=== PATIENT | female | born 2000 | race Caucasian/White ===

== ENCOUNTER 2018-10-23 14:43 | Outpatient (CLI) | payer OTHER ==
--- NOTE | 2018-10-23 16:44 | ULT ---
LIMITED RIGHT BREAST ULTRASOUND: 10/23/2018 PROVIDED CLINICAL HISTORY: Right breast palpable abnormality. FINDINGS: Limited sonographic interrogation was performed to the right breast, in the region of palpable concer n, from the 2 to 4 o'clock positions. The sonographic appearance of the interrogated breast jorge lucia is normal. IMPRESSION: No sonographic abnormality is evident in the region of palpable concern. Negative imaging findings s hould not preclude further investigation of a clinically suspicious area. The patient is referred ba ck to her clinician. POS: OFF
== END 2018-10-23 14:44 | disposition home or self-care (01) ==
LOC: BICULT 14:43
PROVIDERS: ATTEND Student in an Organized Health Care Education/Training Program
DX: N63.12 Unspecified lump in the right breast, upper inner quadrant (principal)

== ENCOUNTER 2020-07-19 20:59 | Inpatient (IN) | payer OTHER ==
[2020-07-19 21:30] VITALS: BMI 31.6
[2020-07-19] MEDS ORDERED: Butorphanol Tartrate 1 MG/ML VIAL SLOW IVP PRN (21:38)
[2020-07-19] MEDS ORDERED: Misoprostol 200 MCG TAB PR PRN (21:38)
[2020-07-19] MEDS ORDERED: Lidocaine 1% (PF) 30 ML VIAL SC PRN (21:38)
[2020-07-19] MEDS ORDERED: Acetaminophen 500 MG TAB PO PRN (21:38)
[2020-07-19] MEDS ORDERED: HYDROcodone/Acetaminophen 5/325 mg Tablet PO PRN ×2 (21:38)
[2020-07-19] MEDS ORDERED: Promethazine HCl 25 MG/ML VIAL IM PRN (21:38)
[2020-07-19] MEDS ORDERED: Methylergonovine 0.2 MG/ML VIAL IM PRN (21:38)
[2020-07-19] MEDS ORDERED: hydrALAZINE 20 MG/ML VIAL SLOW IVP PRN (21:38)
[2020-07-19] MEDS ORDERED: Ondansetron PF 4 MG/2 ML Vial IVP PRN (21:38)
[2020-07-19] MEDS ORDERED: Diphenoxylate HCl/Atropine Tablet PO PRN ×2 (21:38)
[2020-07-19] MEDS ORDERED: Ibuprofen 800 MG TAB PO PRN (21:38)
[2020-07-19] MEDS ORDERED: Carboprost 250 MCG/ML AMP IM PRN (21:38)
--- NOTE | 2020-07-19 21:41 | PDOC.LDHP ---
Labor and Delivery H&P Chief complaint: contractions HPI: 19 y/o G1 at 38w6d, patient of Dr. Lamar, presents with ctx q 5 mins. Denies VB, LOF, or decreased FM. ROS neg for HEENT, cv, pulm, gi, gu, neuro, psych, skin, musculoskeletal or constitutional symptoms other than mentioned above. OB History Details: First Current complications: none Past Medical History: None Current medications: pre- vitamins Previous surgical history: none Allergies/Adverse Reactions: Allergies Allergy/AdvReac Type Severity Reaction Status Date / Time No Known Drug Allergies Allergy Verified 07/19/20 21:20 Social history: none - Physical Exam Vital signs reviewed and normal: yes General: NAD, resting Lungs: nonlabored breathing Abdomen: gravid Extremeties: no edema FHT: category 1 (140s, mod variability, + accels, no decels) [place] contractions every: 5 mins - Vaginal Exam cm dilated: 7 Effacement: 100% Station: -1 - OB Labs Blood type: O RH: positive Antibody Screen: negative HIV: negative RPR: negative HEPSAg: negative 1 hour GCT: negative GBS: negative Rubella: immune - Assessment L&D Assessment: term patient in labor - Plan Plan: admit to L&D, labor augmentation if indicated, informed consent obtained, anesthesia consult for pain management (if desired)
[2020-07-19] MEDS ORDERED: Lactated Ringer's 1,000 ML IV SCH (22:00)
[2020-07-19 22:44] LABS: Hemoglobin 13.1 g/dL (12.0-16.0); Mean Corpuscular HGB CONC 34.2 g/dL (32.0-36.0); Mean Corpuscular Hemoglobin 28.6 pg (27.0-31.0); Mean Corpuscular Volume 83.6 fL (78.0-98.0); Mean Platelet Volume 7.8 fL (7.4-10.4); Platelet Count 347 thou/uL (130-400); RBC Distribution Width 12.7 % (11.5-14.5); Red Blood Cell (RBC) Count 4.59 mill/uL (4.20-5.40); White Blood Cell (WBC) Count 14.1 thou/uL (4.8-10.8)
[2020-07-19] MEDS ORDERED: Fentanyl 4 mcg/Bup 0.1% Cadd 0 ML ONE (23:02)
[2020-07-19 23:24] LABS: Syphilis Antibody Nonreactive (Nonreactive); Syphilis Antibody Index 0.05 S/CO (<1.00 Non-Reactive)
[2020-07-20] MEDS: NS / Oxytocin 40 units/1000ml 1,000 ML IV PRN ×2 (00:21→01:48)
[2020-07-20] MEDS ORDERED: diphenhydrAMINE 25 MG CAP PO PRN (00:41)
[2020-07-20] MEDS ORDERED: Misoprostol 200 MCG TAB VAG PRN (00:41)
[2020-07-20] MEDS ORDERED: Preparation H Ointment 28 GM TUBE PR PRN (00:41)
[2020-07-20] MEDS ORDERED: Benzocaine-Menthol 82.5 ML CAN TOP PRN (00:41)
[2020-07-20] MEDS ORDERED: Promethazine HCl 25 MG/ML VIAL IM PRN (00:41)
[2020-07-20] MEDS ORDERED: hydrALAZINE 20 MG/ML VIAL SLOW IVP PRN (00:41)
[2020-07-20] MEDS ORDERED: Methylergonovine 0.2 MG/ML VIAL IM PRN (00:41)
[2020-07-20] MEDS ORDERED: Milk Of Magnesia 30 ML UDCUP PO PRN (00:41)
[2020-07-20] MEDS ORDERED: HYDROcodone/Acetaminophen 5/325 mg Tablet PO PRN ×2 (00:41)
[2020-07-20] MEDS ORDERED: Bisacodyl 10 MG SUPP PR PRN (00:41)
[2020-07-20] MEDS ORDERED: Ondansetron PF 4 MG/2 ML Vial IVP PRN (00:41)
--- NOTE | 2020-07-20 00:43 | PDOC.OPDEL ---
OB Operative/Delivery Note Delivery Dr/Surgeon: Vivek Pre-Delivery Diagnosis: active labor Procedure/Post Delivery Dx: spontaneous vaginal delivery Weeks gestation: 39 Anesthesia: none - Findings A Sex: male ("Aldo") Weight: 7 lb 3.734 oz - 1 min: 9 - 5 min: 9 - Additional Findings/Plan Placenta delivered: spontaneous Repaired Obstetrical Laceration: 2nd degree (and left vaginal) Post delivery plan: routine recovery
[2020-07-20] MEDS ORDERED: NS / Oxytocin 40 units/1000ml 1,000 ML IV SCH (00:45)
[2020-07-20 01:20] LABS: HBSAg Index 0.14 S/CO (0-0.99); Hep B Surf Ag Non-Reactive S/CO (NonReactive)
[2020-07-20] MEDS: Ibuprofen 800 MG TAB PO SCH ×3 (04:31→21:48)
[2020-07-20] MEDS: Ferrous Sulfate 325 MG TAB PO SCH ×2 (07:21→16:55)
[2020-07-20] MEDS ORDERED: Varicella virus, LIVE 0.5 ML VIAL SC ONE (09:00)
[2020-07-20] MEDS ORDERED: FLU VACC QS2020-21(6MOS UP)/PF 60 MCG/0.5 ML SYRINGE IM ONE (09:00)
[2020-07-20] MEDS ORDERED: Adacel (T-DAP) 0.5 ML SYRINGE IM ONE (09:00)
[2020-07-20] MEDS ORDERED: Measles/Mumps/Rubella 10 MCG/0.5 ML VIAL SC ONE (09:00)
[2020-07-20] MEDS: Docusate Calcium (SURFAK) 240 MG CAP PO SCH ×2 (09:22→21:48)
[2020-07-20 10:42] LABS: SARS-CoV-2 MS2 Positive; SARS-CoV-2 N Gene Negative; SARS-CoV-2 S Gene Negative; SARS-CoV-2 by NAA Not Detected (NotDetected); SARS-CoV-2 orf1ab Negative
[2020-07-21] MEDS: Ibuprofen 800 MG TAB PO SCH ×2 (05:43→13:52)
[2020-07-21] MEDS: Ferrous Sulfate 325 MG TAB PO SCH (07:45)
[2020-07-21 08:03] VITALS: BP 104/60; TEMP 97.9
[2020-07-21] MEDS: Docusate Calcium (SURFAK) 240 MG CAP PO SCH (08:20)
--- NOTE | 2020-07-21 09:11 | PDOC.PP ---
Post Progress Note Post Day #: 1 PO intake tolerated: yes Flatus: yes Ambulation: yes Vital Signs (12 hours) Temp Pulse Resp BP Pulse Ox 07/21/20 08:02 97.9 F 68 20 104/60 98 07/21/20 00:38 98.1 F 68 16 120/66 Weight Weight 196 lb - Physical Examination General: NAD Abdominal: no distention Fundus firm & at: umb-2 Skin: no rash Neurological: no gross focal deficits Psychiatric: normal affect Result Diagrams: 07/19/20 22:20 Additional Labs: Post Labs Hep Bs Antigen Non-Reactive S/CO (NonReactive) 07/19/20 22:20 Blood Type O POSITIVE 07/20/20 01:14 - Assessment/Plan PPD1 s/p TVSD VSSAF Doing well, lochia < menses Rh pos RImm DC home FU 6w
== END 2020-07-21 15:00 | disposition home or self-care (01) | DRG 807 ==
LOC: L&D/OP 20:59 → L&D 21:38 → 3SW 07-20 02:40
PROVIDERS: ADMIT Student in an Organized Health Care Education/Training Program; ATTEND Student in an Organized Health Care Education/Training Program
PROC: 10E0XZZ Delivery of Products of Conception, External Approach (ICD-10-PCS; principal; 2020-07-20)
PROC: 0KQM0ZZ Repair Perineum Muscle, Open Approach (ICD-10-PCS; 2020-07-20)
DX: O70.1 Second degree perineal laceration during delivery (principal); Z37.0 Single live birth; Z3A.38 38 weeks gestation of pregnancy; Z20.828 Contact with and (suspected) exposure to other viral communicable diseases
CPT/HCPCS: 36415; 85027; 86780; 86850; 86900; 86901; 87340; 87635; 99285; U0003